=== PATIENT | male | born 1965 | race Caucasian/White ===

== ENCOUNTER 2023-06-17 23:05 | Inpatient (IN) | payer OTHER ==
[~2023-06-17] VITALS: Ht 177.8 cm; Wt 91.6 kg
[2023-06-17 23:11] VITALS: BP 127/72; PULSE 100; RESP 18; TEMP 98.1; O2SAT 100
[2023-06-18 01:07] LABS: BASOPHILS # (AUTO) 0.1 K/uL (0.00-0.22); BASOPHILS % (AUTO) 0.5 % (0.0-2.0); EOSINOPHILS # (AUTO) 0.2 K/uL (0-0.4); EOSINOPHILS % (AUTO) 1.4 % (0.0-4.0); HEMATOCRIT 27.9 % (36-52); LYMPHOCYTES # (AUTO) 2.2 K/uL (2.0-11.5); LYMPHOCYTES % (AUTO) 17.6 % (20.5-51.1); MEAN CORPUSCULAR HEMOGLOBIN 26 pg (27-31); MEAN CORPUSCULAR HGB CONC 32 g/dL (33-37); MEAN CORPUSCULAR VOLUME 78.8 fL (80-94); NEUTROPHILS # (AUTO) 8.9 K/uL (1.8-7.7); NEUTROPHILS % (AUTO) 72.5 % (42.2-75.2); PLATELET COUNT (AUTO) 200 K/uL (140-450); RED BLOOD CELL COUNT(AUTO) 3.54 MIL/uL (4.20-6.10); RED CELL DISTRIBUTION WIDTH 16.9 % (11.6-13.7); WHITE BLOOD COUNT (AUTO) 12.2 K/uL (4.8-10.8)
[2023-06-18 01:16] LABS: ANION GAP 11.6 (8-16); CALCIUM 8.2 mg/dL (8.5-10.1); CARBON DIOXIDE 22.9 mmol/L (21-32); CREATININE 1.7 mg/dL (0.6-1.3); POTASSIUM 3.5 mmol/L (3.5-5.1)
[2023-06-18 01:20] LABS: INR 1.01 (0.8-1.2); PARTIAL THROMBOPLASTIN TIME 28.8 secs (22-35.6); PROTHROMBIN TIME 10.6 secs (10.8-13.4)
[2023-06-18] MEDS ORDERED: HEPARIN PER PHARMACY MC STA (02:29)
[2023-06-18] MEDS ORDERED: NACL 0.9% 1,000 ML IV ONE (02:30)
[2023-06-18] MEDS ORDERED: hePARIN / DEXT 5% PREMIX 250 ML IV ONE (02:30)
[2023-06-18] MEDS: hePARIN / DEXT 5% PREMIX 250 ML IV PRN ×2 (03:22→19:05)
[2023-06-18] MEDS ORDERED: QUET25TA PO (04:20)
[2023-06-18] MEDS ORDERED: MAGN400S60 PO (04:20)
[2023-06-18] MEDS ORDERED: TAMS0.4C96 PO (04:20)
[2023-06-18] MEDS ORDERED: METO50TE2 PO (04:20)
[2023-06-18] MEDS ORDERED: BISA-218 RC (04:20)
[2023-06-18] MEDS ORDERED: DONE10TA10 PO (04:20)
[2023-06-18] MEDS ORDERED: AMLO10TA PO (04:20)
[2023-06-18] MEDS ORDERED: ACET-2619 PO (04:20)
[2023-06-18] MEDS ORDERED: ONDA-188 PO (04:20)
[2023-06-18] MEDS ORDERED: LISI40TA14 PO (04:20)
[2023-06-18] MEDS ORDERED: ACETAMINOPHEN 325 MG TAB PO PRN (06:20)
[2023-06-18] MEDS ORDERED: VANCOMYCIN PER PHARMACY MC PRN (06:20)
[2023-06-18] MEDS ORDERED: HYDROcodone/APAP 5/325 MG 1 TAB TAB PO PRN (06:20)
[2023-06-18] MEDS ORDERED: MORPHINE SULFATE 2 MG/ML SYR IVP PRN (06:20)
[2023-06-18] MEDS ORDERED: MAGNESIUM OXIDE 400 MG TAB PO PRN (06:20)
[2023-06-18] MEDS ORDERED: ONDANSETRON 4 MG/2 ML VIAL IVP PRN (06:20)
[2023-06-18] MEDS ORDERED: DEXTROSE 50% 50 ML SYR IVP PRN (06:25)
[2023-06-18] MEDS ORDERED: HEPARIN PER PHARMACY MC PRN (06:25)
[2023-06-18] MEDS ORDERED: INSULIN LISPRO 100 UNITS/ML VIAL SUBQ SCH (06:27)
[2023-06-18] MEDS: NACL 0.9% 1,000 ML IV SCH ×2 (06:54→18:50)
[2023-06-18] MEDS: BLOOD GLUCOSE MONITORING 1 DEV DEV FS SCH ×4 (07:30→20:22)
[2023-06-18] MEDS ORDERED: cefTRIAXone 1,000 MG VIAL ONE (07:48)
[2023-06-18 08:10] VITALS: PULSE 89; RESP 18; O2SAT 97
[2023-06-18] MEDS ORDERED: VANCOMYCIN 1,500 MG in DEXTROSE 5% 500 ML IV SCH (09:00)
[2023-06-18] MEDS ORDERED: INSULIN LANTUS 100 UNITS/ML 10 ML VIAL SUBQ SCH (09:00)
[2023-06-18] MEDS: INSULIN LANTUS 100 UNITS/ML 10 ML VIAL SUBQ SCH ×2 (10:13→20:24)
[2023-06-18] MEDS: INSULIN LISPRO SLIDING SCALE 100 UNITS/ML VIAL SUBQ PRN ×3 (11:55→20:27)
[2023-06-18 12:00] VITALS: BP 113/72; PULSE 86; PULSE 94; RESP 20; TEMP 98.3; O2SAT 94
[2023-06-18 14:27] LABS: APPEARANCE,URINE CLEAR (CLEAR); BILIRUBIN,URINE NEGATIVE (NEGATIVE); BLOOD, URINE 1+ (NEGATIVE); COLOR,URINE YELLOW (YELLOW); LEUKOCYTE ESTERASE ,URINE NEGATIVE (NEGATIVE); NITRITE, URINE NEGATIVE (NEGATIVE); PROTEIN,URINE 1+ (NEGATIVE); UGLUCOSE 3+ (NEGATIVE); UROBILINOGEN,URINE 0.2 EU/dL (0.2 - 1)
[2023-06-18 14:42] LABS: CYSTINE CRYSTALS,URINE 0-10 /HPF (None Seen); SQUAMOUS EPITHELIAL CELL,UR 0-3 (FEW) /LPF (0-3 (FEW)); WBC,URINE 0-5 /HPF (0-5)
[2023-06-18 14:43] LABS: BACTERIA,URINE 10-30 (MOD) /HPF (None Seen)
[2023-06-18 16:00] VITALS: BP 114/73; PULSE 92; PULSE 95; RESP 18; TEMP 98.9; O2SAT 94
[2023-06-18 20:00] VITALS: BP 119/72; PULSE 96; PULSE 98; RESP 18; TEMP 99.2; O2SAT 96
[2023-06-18] MEDS: PIPERACILLIN/TAZOBACTAM 3.375 GM in DEXTROSE 5% 50 ML IV SCH (20:28)
[2023-06-19] VITALS (8 sets, daily range): BP systolic 114–141; BP diastolic 67–80; PULSE 89–101; RESP 18–20; TEMP 98.2–98.7; O2SAT 95–97
[2023-06-19] MEDS: VANCOMYCIN HCL 25 MG/ML SOLN PO SCH ×4 (00:41→17:04)
[2023-06-19] MEDS: NACL 0.9% 1,000 ML IV SCH ×2 (01:33→07:20)
[2023-06-19] MEDS: PIPERACILLIN/TAZOBACTAM 3.375 GM in DEXTROSE 5% 50 ML IV SCH ×2 (04:17→13:56)
[2023-06-19] MEDS: BLOOD GLUCOSE MONITORING 1 DEV DEV FS SCH ×4 (06:34→20:54)
[2023-06-19] MEDS: INSULIN LISPRO SLIDING SCALE 100 UNITS/ML VIAL SUBQ PRN ×4 (06:36→20:53)
[2023-06-19 07:27] LABS: ANION GAP 12.7 (8-16); BASOPHILS # (AUTO) 0.1 K/uL (0.00-0.22); BASOPHILS % (AUTO) 1.1 % (0.0-2.0); CALCIUM 8.3 mg/dL (8.5-10.1); CARBON DIOXIDE 21.2 mmol/L (21-32); CREATININE 1.3 mg/dL (0.6-1.3); EOSINOPHILS # (AUTO) 0.2 K/uL (0-0.4); EOSINOPHILS % (AUTO) 2.2 % (0.0-4.0); HEMOGLOBIN 8.4 g/dL (12.0-18.0); LYMPHOCYTES # (AUTO) 1.7 K/uL (2.0-11.5); LYMPHOCYTES % (AUTO) 20.6 % (20.5-51.1); MEAN CORPUSCULAR HEMOGLOBIN 26 pg (27-31); MEAN CORPUSCULAR HGB CONC 34 g/dL (33-37); MEAN CORPUSCULAR VOLUME 77.1 fL (80-94); MONOCYTES # (AUTO) 0.7 K/uL (0.8-1.0); NEUTROPHILS # (AUTO) 5.5 K/uL (1.8-7.7); NEUTROPHILS % (AUTO) 68.1 % (42.2-75.2); PLATELET COUNT (AUTO) 198 K/uL (140-450); RED BLOOD CELL COUNT(AUTO) 3.25 MIL/uL (4.20-6.10); RED CELL DISTRIBUTION WIDTH 16.7 % (11.6-13.7); WHITE BLOOD COUNT (AUTO) 8.1 K/uL (4.8-10.8)
[2023-06-19 07:30] LABS: POTASSIUM 2.9 mmol/L (3.5-5.1)
[2023-06-19] MEDS: POTASSIUM CHLORIDE 10 MEQ TABER PO PRN (09:14)
[2023-06-19] MEDS: VANCOMYCIN 750 MG in DEXTROSE 5% 250 ML IV SCH ×2 (09:15→20:58)
[2023-06-19] MEDS: INSULIN LANTUS 100 UNITS/ML 10 ML VIAL SUBQ SCH ×2 (09:27→21:06)
[2023-06-19] MEDS: hePARIN / DEXT 5% PREMIX 250 ML IV PRN (11:34)
[2023-06-19] MEDS: KCL 20 MEQ IN 100 mL PREMIX 200 ML IV PRN (11:52)
[2023-06-20] VITALS (7 sets, daily range): BP systolic 135–152; BP diastolic 76–90; PULSE 83–92; RESP 18–20; TEMP 98.2–98.8; O2SAT 95–97
[2023-06-20] MEDS: VANCOMYCIN HCL 25 MG/ML SOLN PO SCH ×3 (01:20→11:55)
[2023-06-20] MEDS: hePARIN / DEXT 5% PREMIX 250 ML IV PRN (02:49)
[2023-06-20] MEDS: BLOOD GLUCOSE MONITORING 1 DEV DEV FS SCH ×4 (07:10→21:42)
[2023-06-20] MEDS: INSULIN LISPRO SLIDING SCALE 100 UNITS/ML VIAL SUBQ PRN ×3 (07:13→21:41)
[2023-06-20 08:22] LABS: BASOPHILS % (AUTO) 0.7 % (0.0-2.0); EOSINOPHILS # (AUTO) 0.2 K/uL (0-0.4); EOSINOPHILS % (AUTO) 3.7 % (0.0-4.0); HEMATOCRIT 26.1 % (36-52); HEMOGLOBIN 8.8 g/dL (12.0-18.0); LYMPHOCYTES # (AUTO) 1.4 K/uL (2.0-11.5); LYMPHOCYTES % (AUTO) 23.9 % (20.5-51.1); MEAN CORPUSCULAR HEMOGLOBIN 26 pg (27-31); MEAN CORPUSCULAR HGB CONC 34 g/dL (33-37); MONOCYTES # (AUTO) 0.5 K/uL (0.8-1.0); NEUTROPHILS # (AUTO) 3.8 K/uL (1.8-7.7); NEUTROPHILS % (AUTO) 63.7 % (42.2-75.2); PLATELET COUNT (AUTO) 208 K/uL (140-450); RED BLOOD CELL COUNT(AUTO) 3.39 MIL/uL (4.20-6.10); RED CELL DISTRIBUTION WIDTH 16.8 % (11.6-13.7); WHITE BLOOD COUNT (AUTO) 5.9 K/uL (4.8-10.8)
[2023-06-20 08:35] LABS: ANION GAP 10.5 (8-16); CALCIUM 8.4 mg/dL (8.5-10.1); CARBON DIOXIDE 22.3 mmol/L (21-32); CREATININE 1.1 mg/dL (0.6-1.3)
[2023-06-20 08:37] LABS: POTASSIUM 2.8 mmol/L (3.5-5.1)
[2023-06-20] MEDS: POTASSIUM CHLORIDE 10 MEQ TABER PO PRN (09:08)
[2023-06-20] MEDS: VANCOMYCIN 750 MG in DEXTROSE 5% 250 ML IV SCH ×2 (09:09→21:26)
[2023-06-20] MEDS: INSULIN LANTUS 100 UNITS/ML 10 ML VIAL SUBQ SCH ×2 (09:10→21:32)
[2023-06-20] MEDS: KCL 20 MEQ IN 100 mL PREMIX 200 ML IV PRN (11:54)
[2023-06-20] MEDS: APIXABAN 2.5 MG TAB PO SCH (22:35)
[2023-06-21] VITALS: BP 138/90; PULSE 84; RESP 18; TEMP 98.7; O2SAT 97
[2023-06-21 04:00] VITALS: BP 140/92; PULSE 85; RESP 18; TEMP 98.8; O2SAT 96
[2023-06-21 05:44] LABS: BASOPHILS % (AUTO) 0.7 % (0.0-2.0); EOSINOPHILS # (AUTO) 0.2 K/uL (0-0.4); EOSINOPHILS % (AUTO) 3.7 % (0.0-4.0); HEMATOCRIT 25.5 % (36-52); HEMOGLOBIN 8.7 g/dL (12.0-18.0); LYMPHOCYTES # (AUTO) 1.5 K/uL (2.0-11.5); LYMPHOCYTES % (AUTO) 23.5 % (20.5-51.1); MEAN CORPUSCULAR HEMOGLOBIN 26 pg (27-31); MEAN CORPUSCULAR HGB CONC 34 g/dL (33-37); MEAN CORPUSCULAR VOLUME 75.6 fL (80-94); MONOCYTES # (AUTO) 0.5 K/uL (0.8-1.0); MONOCYTES % (AUTO) 8.5 % (1.7-9.3); NEUTROPHILS % (AUTO) 63.6 % (42.2-75.2); PLATELET COUNT (AUTO) 208 K/uL (140-450); RED BLOOD CELL COUNT(AUTO) 3.38 MIL/uL (4.20-6.10); RED CELL DISTRIBUTION WIDTH 16.3 % (11.6-13.7); WHITE BLOOD COUNT (AUTO) 6.2 K/uL (4.8-10.8)
[2023-06-21 05:55] LABS: ANION GAP 10.2 (8-16); CALCIUM 8.4 mg/dL (8.5-10.1); CARBON DIOXIDE 23.7 mmol/L (21-32)
[2023-06-21 06:13] LABS: POTASSIUM 2.9 mmol/L (3.5-5.1)
[2023-06-21] MEDS: KCL 20 MEQ IN 100 mL PREMIX 200 ML IV PRN (06:42)
[2023-06-21] MEDS: BLOOD GLUCOSE MONITORING 1 DEV DEV FS SCH ×2 (06:47→12:19)
[2023-06-21 08:00] VITALS: BP 148/88; PULSE 85; RESP 17; TEMP 98; O2SAT 96; O2SAT 97
[2023-06-21] MEDS: VANCOMYCIN 750 MG in DEXTROSE 5% 250 ML IV SCH (09:56)
[2023-06-21] MEDS: APIXABAN 2.5 MG TAB PO SCH (09:57)
[2023-06-21] MEDS: INSULIN LANTUS 100 UNITS/ML 10 ML VIAL SUBQ SCH (10:01)
[2023-06-21] MEDS: INSULIN LISPRO SLIDING SCALE 100 UNITS/ML VIAL SUBQ PRN (12:24)
[2023-06-21] MEDS ORDERED: APIX5TAB PO (16:37)
[2023-06-21 16:53] VITALS: BP 139/81; PULSE 87; RESP 18; TEMP 98.2
== END 2023-06-21 17:18 | DRG 197 ==
LOC: MED 23:05 → MTU 06-18 06:22
PROVIDERS: ADMIT Internal Medicine; ATTEND Internal Medicine
DX: I82.401 Acute embolism and thrombosis of unspecified deep veins of right lower extremity (principal); R65.11 Systemic inflammatory response syndrome (SIRS) of non-infectious origin with acute organ dysfunction; N17.9 Acute kidney failure, unspecified; L03.115 Cellulitis of right lower limb; E11.65 Type 2 diabetes mellitus with hyperglycemia; K62.89 Other specified diseases of anus and rectum; N39.0 Urinary tract infection, site not specified; I10 Essential (primary) hypertension; E87.6 Hypokalemia; E83.52 Hypercalcemia; Z79.1 Long term (current) use of non-steroidal anti-inflammatories (NSAID); Z79.899 Other long term (current) drug therapy; Z22.322 Carrier or suspected carrier of Methicillin resistant Staphylococcus aureus
CPT/HCPCS: 36415; 71045; 72193; 76770; 80048; 80202; 81001; 82570; 82948; 83735; 84300; 85025; 85610; 85730; 87070; 87081; 87086; 93971; 96361; 96365; 96372; 96375; 97112; 97116; 97163-GP; 97530; 99291; J0696; J1644; J1815; J2405; J2543; J3370; J3480; J7060; Q0092

== ENCOUNTER 2023-07-10 18:47 | Observation (INO) | payer OTHER ==
[~2023-07-10] VITALS: Ht 167.6 cm; Wt 71.8 kg
[~2023-07-10 18:47] MED LIST: ACET-2619 PO; AMLO10TA PO; APIX5TAB PO; BISA-218 RC; DONE10TA10 PO; LISI40TA14 PO; MAGN400S60 PO; METO50TE2 PO; ONDA-188 PO; QUET25TA PO; TAMS0.4C96 PO
[2023-07-10] MEDS ORDERED: NACL 0.9% 1,000 ML IV SCH (19:10)
[2023-07-10 19:13] VITALS: BP 134/74; PULSE 86; RESP 18; TEMP 98.7; O2SAT 98
[2023-07-10] MEDS ORDERED: cefTRIAXone 1,000 MG VIAL ONE (19:43)
[2023-07-10 20:45] LABS: BASOPHILS % (AUTO) 0.5 % (0.0-2.0); EOSINOPHILS # (AUTO) 0.1 K/uL (0-0.4); EOSINOPHILS % (AUTO) 1.6 % (0.0-4.0); HEMATOCRIT 37.3 % (36-52); HEMOGLOBIN 12.3 g/dL (12.0-18.0); LYMPHOCYTES # (AUTO) 1.5 K/uL (2.0-11.5); LYMPHOCYTES % (AUTO) 18.2 % (20.5-51.1); MEAN CORPUSCULAR HEMOGLOBIN 25 pg (27-31); MEAN CORPUSCULAR HGB CONC 33 g/dL (33-37); MEAN CORPUSCULAR VOLUME 76.5 fL (80-94); MONOCYTES # (AUTO) 0.5 K/uL (0.8-1.0); MONOCYTES % (AUTO) 6.2 % (1.7-9.3); NEUTROPHILS % (AUTO) 73.5 % (42.2-75.2); PLATELET COUNT (AUTO) 215 K/uL (140-450); RED BLOOD CELL COUNT(AUTO) 4.88 MIL/uL (4.20-6.10); RED CELL DISTRIBUTION WIDTH 17.1 % (11.6-13.7); WHITE BLOOD COUNT (AUTO) 8.2 K/uL (4.8-10.8)
[2023-07-10 21:03] LABS: INR 1.06 (0.8-1.2); PARTIAL THROMBOPLASTIN TIME 27.4 secs (22-35.6); PROTHROMBIN TIME 11.1 secs (10.8-13.4)
[2023-07-10 21:04] LABS: ALBUMIN 3.4 g/dL (3.4-5.0); ANION GAP 12.4 (8-16); CALCIUM 9.6 mg/dL (8.5-10.1); CARBON DIOXIDE 26.7 mmol/L (21-32); POTASSIUM 4.1 mmol/L (3.5-5.1); TOTAL BILIRUBIN 0.7 mg/dL (0.0-1.0); TOTAL PROTEIN, SERUM 7.3 g/dL (6.4-8.2)
[2023-07-10 21:09] LABS: LACTIC ACID 0.6 mmol/L (0.4-2.0)
[2023-07-10 21:15] LABS: LIPASE 135 U/L (73-393)
[2023-07-10 21:22] LABS: BILIRUBIN,URINE NEGATIVE (NEGATIVE); BLOOD, URINE 2+ (NEGATIVE); COLOR,URINE YELLOW (YELLOW); LEUKOCYTE ESTERASE ,URINE 1+ (NEGATIVE); NITRITE, URINE POSITIVE (NEGATIVE); PROTEIN,URINE 2+ (NEGATIVE); UGLUCOSE 2+ (NEGATIVE); UROBILINOGEN,URINE 0.2 EU/dL (0.2 - 1)
[2023-07-10 21:25] LABS: APPEARANCE,URINE CLOUDY (CLEAR)
[2023-07-10] MEDS ORDERED: KCL 20 MEQ IN 100 mL PREMIX 200 ML IV PRN (21:25)
[2023-07-10] MEDS ORDERED: ONDANSETRON 4 MG/2 ML VIAL IVP PRN (21:25)
[2023-07-10] MEDS ORDERED: MAGNESIUM OXIDE 400 MG TAB PO PRN (21:25)
[2023-07-10] MEDS ORDERED: MAG SULF 2000 MG/WATER PREMIX 50 ML IV PRN (21:25)
[2023-07-10] MEDS ORDERED: ACETAMINOPHEN 325 MG TAB PO PRN (21:25)
[2023-07-10] MEDS ORDERED: POTASSIUM CHLORIDE 10 MEQ TABER PO PRN (21:25)
[2023-07-10] MEDS ORDERED: HYDROcodone/APAP 5/325 MG 1 TAB TAB PO PRN (21:25)
[2023-07-10 21:35] LABS: BACTERIA,URINE 3+ /HPF (None Seen); RBC,URINE 11-20 (MOD) /HPF (0-5); SQUAMOUS EPITHELIAL CELL,UR None Seen /LPF (0-3 (FEW)); WBC,URINE 80-100 /HPF (0-5)
[2023-07-10] MEDS: NACL 0.9% 1,000 ML IV SCH (22:38)
[2023-07-10 22:50] VITALS: PULSE 79; RESP 18
[2023-07-11] VITALS: BP 140/79; PULSE 86; RESP 18; TEMP 97.9; O2SAT 98
[2023-07-11 04:00] VITALS: BP 151/95; PULSE 84; RESP 18; TEMP 97.1; O2SAT 99
[2023-07-11 06:37] LABS: ANION GAP 8.9 (8-16); CALCIUM 9.4 mg/dL (8.5-10.1); CARBON DIOXIDE 27.8 mmol/L (21-32); CREATININE 0.9 mg/dL (0.6-1.3); POTASSIUM 3.7 mmol/L (3.5-5.1)
[2023-07-11 06:42] LABS: MAGNESIUM 1.6 mg/dL (1.8-2.4); PHOSPHORUS 3.5 mg/dL (2.5-4.9)
[2023-07-11 07:08] LABS: BASOPHILS % (AUTO) 0.5 % (0.0-2.0); EOSINOPHILS # (AUTO) 0.2 K/uL (0-0.4); EOSINOPHILS % (AUTO) 3.4 % (0.0-4.0); HEMATOCRIT 36.6 % (36-52); HEMOGLOBIN 12.1 g/dL (12.0-18.0); LYMPHOCYTES # (AUTO) 2.1 K/uL (2.0-11.5); LYMPHOCYTES % (AUTO) 32.9 % (20.5-51.1); MEAN CORPUSCULAR HEMOGLOBIN 25 pg (27-31); MEAN CORPUSCULAR HGB CONC 33 g/dL (33-37); MEAN CORPUSCULAR VOLUME 76.7 fL (80-94); MONOCYTES # (AUTO) 0.7 K/uL (0.8-1.0); MONOCYTES % (AUTO) 10.9 % (1.7-9.3); NEUTROPHILS # (AUTO) 3.3 K/uL (1.8-7.7); NEUTROPHILS % (AUTO) 52.3 % (42.2-75.2); PLATELET COUNT (AUTO) 204 K/uL (140-450); RED BLOOD CELL COUNT(AUTO) 4.77 MIL/uL (4.20-6.10); RED CELL DISTRIBUTION WIDTH 16.9 % (11.6-13.7); WHITE BLOOD COUNT (AUTO) 6.3 K/uL (4.8-10.8)
[2023-07-11 08:00] VITALS: BP 135/91; PULSE 84; PULSE 93; RESP 16; RESP 18; TEMP 98.4; O2SAT 97
[2023-07-11] MEDS: DOCUSATE SODIUM 100 MG GELCAP PO SCH (10:05)
[2023-07-11] MEDS: NACL 0.9% 1,000 ML IV SCH ×2 (10:10→22:22)
[2023-07-11 20:00] VITALS: BP 156/91; PULSE 93; RESP 17; TEMP 98.8; O2SAT 96
[2023-07-11] MEDS: LACTULOSE 20 GM/30 ML UDC PO SCH (20:09)
[2023-07-11] MEDS: APIXABAN 2.5 MG TAB PO SCH (20:10)
[2023-07-12 04:00] VITALS: BP 156/97; PULSE 85; RESP 18; TEMP 98.5; O2SAT 98
[2023-07-12 06:38] LABS: ANION GAP 10.7 (8-16); CALCIUM 9.1 mg/dL (8.5-10.1); CARBON DIOXIDE 24.9 mmol/L (21-32); CREATININE 0.8 mg/dL (0.6-1.3); POTASSIUM 3.6 mmol/L (3.5-5.1)
[2023-07-12 06:42] LABS: MAGNESIUM 1.5 mg/dL (1.8-2.4); PHOSPHORUS 3.2 mg/dL (2.5-4.9)
[2023-07-12 07:30] LABS: BASOPHILS % (AUTO) 0.5 % (0.0-2.0); EOSINOPHILS # (AUTO) 0.2 K/uL (0-0.4); EOSINOPHILS % (AUTO) 3.1 % (0.0-4.0); HEMATOCRIT 34.6 % (36-52); HEMOGLOBIN 11.6 g/dL (12.0-18.0); LYMPHOCYTES # (AUTO) 2.2 K/uL (2.0-11.5); LYMPHOCYTES % (AUTO) 31.1 % (20.5-51.1); MEAN CORPUSCULAR HEMOGLOBIN 26 pg (27-31); MEAN CORPUSCULAR HGB CONC 33 g/dL (33-37); MEAN CORPUSCULAR VOLUME 76.3 fL (80-94); MONOCYTES # (AUTO) 0.6 K/uL (0.8-1.0); MONOCYTES % (AUTO) 9.2 % (1.7-9.3); NEUTROPHILS # (AUTO) 3.9 K/uL (1.8-7.7); NEUTROPHILS % (AUTO) 56.1 % (42.2-75.2); PLATELET COUNT (AUTO) 214 K/uL (140-450); RED BLOOD CELL COUNT(AUTO) 4.53 MIL/uL (4.20-6.10); RED CELL DISTRIBUTION WIDTH 17.1 % (11.6-13.7)
[2023-07-12 08:00] VITALS: BP 154/88; PULSE 81; RESP 19; TEMP 97.4; TEMP 98.5; O2SAT 99
[2023-07-12 08:03] VITALS: PULSE 87; RESP 18
[2023-07-12] MEDS: NACL 0.9% 1,000 ML IV SCH (10:44)
[2023-07-12] MEDS: APIXABAN 2.5 MG TAB PO SCH (10:46)
[2023-07-12] MEDS: LACTULOSE 20 GM/30 ML UDC PO SCH (10:46)
[2023-07-12] MEDS: DOCUSATE SODIUM 100 MG GELCAP PO SCH (10:46)
[2023-07-12] MEDS ORDERED: AMOX-999 PO (12:04)
== END 2023-07-12 13:43 ==
LOC: MED 18:47 → MTU 21:26
PROVIDERS: ADMIT Student in an Organized Health Care Education/Training Program; ATTEND Student in an Organized Health Care Education/Training Program
DX: E86.1 Hypovolemia (principal); E86.0 Dehydration; K59.00 Constipation, unspecified; N39.0 Urinary tract infection, site not specified; I10 Essential (primary) hypertension; E11.9 Type 2 diabetes mellitus without complications; N40.0 Benign prostatic hyperplasia without lower urinary tract symptoms; E78.5 Hyperlipidemia, unspecified; Z86.718 Personal history of other venous thrombosis and embolism; Z79.899 Other long term (current) drug therapy
CPT/HCPCS: 36415; 71045; 80048; 80053; 81001; 83605; 83690; 83735; 83880; 84100; 84484; 85025; 85610; 85730; 87040; 87081; 87086; 93005; 96361; 96365; 96366; 96372; 99285; G0378; J0696; J1644; J7060